=== PATIENT | female | born 1965 | race Caucasian/White ===

== ENCOUNTER 2016-10-31 17:18 | Emergency (ER) | payer MEDICAID ==
[~2016-10-31] VITALS: Ht 157.5 cm; Wt 61.0 kg
[~2016-10-31 17:18] MED LIST: METR70GE5 VG
[2016-10-31 23:35] VITALS: BP 129/84
== END 2016-10-31 23:38 | disposition home or self-care (01) ==
LOC: ER 17:18
DX: J06.9 Acute upper respiratory infection, unspecified (principal)
CPT/HCPCS: 81025; 99283; Z7610